=== PATIENT | male | born 1965 | race Caucasian/White ===

== ENCOUNTER 2017-01-27 13:03 | Emergency (ER) | payer OTHER ==
[~2017-01-27] VITALS: Ht 180.3 cm; Wt 96.2 kg
[2017-01-27] MEDS ORDERED: CELEXA20 MG PO (13:28)
[2017-01-27] MEDS ORDERED: METAXALONE800 MG PO (13:29)
[2017-01-27] MEDS ORDERED: DOXYCYCLINE HY100 M3 PO (13:29)
[2017-01-27] MEDS ORDERED: METRONIDAZOLE45 GM TOP (13:30)
[2017-01-27] MEDS ORDERED: ALEVE220 MG PO (13:30)
[2017-01-27 15:10] VITALS: BP 124/81
== END 2017-01-27 15:36 | disposition home or self-care (01) ==
LOC: ER 13:03
DX: S91.312A Laceration without foreign body, left foot, initial encounter (principal); Z98.890 Other specified postprocedural states; W27.0XXA Contact with workbench tool, initial encounter; Y93.89 Activity, other specified; Y92.89 Other specified places as the place of occurrence of the external cause; Y99.8 Other external cause status